=== PATIENT | female | born 1995 | race American Indian/Alaskan Native ===

== ENCOUNTER 2017-10-26 15:40 | Emergency (ER) | payer SELFPAY ==
[2017-10-26 15:51] VITALS: BP 119/62
[2017-10-26] MEDS ORDERED: FUL-GLO OP ONE ×2 (17:46→18:13)
[2017-10-26] MEDS ORDERED: TETRACAINE 0.5% OU PRN (17:46)
[2017-10-26] MEDS ORDERED: BSS ONE (18:13)
[2017-10-26] MEDS ORDERED: TETRACAINE 0.5% ONE (18:13)
--- NOTE | 2017-10-26 18:43 | Emergency Department Report ---
[facility] Chief Complaint: Eye Problems Stated Complaint: PINK EYE Time Seen by Provider: 10/26/17 17:39 Duration: 1 Day Side: Left Severity: mild Symptoms: Yes Eye Itching, Yes Eye Redness, No Eye Pain, No Mucous Drainage, No Purulent Drainage, No Blurred Vision, No Preceding URI, No H/O Allergic Rhinitis , No Contact Lens Use, No Trauma, No Fever, No Headache Other History: This is a 22-year-old female nontoxic, well nourished in appearance, no acute signs of distress presents to the ED with c/o of left eye crusting, itching, and redness x1 day. Patient stated yesterday she wake up with these symptoms. Patient denies any trauma. Denies any foreign body senstation. Denies any visual changes, blurry vision, headache, stiff neck, nausea, vomiting, eye pain, fever, chills, chest pain, shortness of breath, abdominal pain, numbness or tingling. Patient denies any allergies or past medical history. ED Review of Systems ROS: Stated complaint: PINK EYE Other details as noted in HPI Constitutional: denies: chills, fever Eyes: eye discharge. denies: eye pain, vision change ENT: denies: ear pain, throat pain Respiratory: denies: cough, shortness of breath, wheezing Cardiovascular: denies: chest pain, palpitations Endocrine: no symptoms reported Gastrointestinal: denies: abdominal pain, nausea, diarrhea Genitourinary: denies: urgency, dysuria, discharge Musculoskeletal: denies: back pain, joint swelling, arthralgia Skin: denies: rash, lesions Neurological: denies: headache, weakness, paresthesias Psychiatric: denies: anxiety, depression Hematological/Lymphatic: denies: easy bleeding, easy bruising ED Past Medical Hx - Past Medical History Previous Medical History?: No - Surgical History Past Surgical History?: No - Social History Smoking Status: Never Smoker Substance Use Type: Alcohol - Medications Home Medications: Home Medications Medication Instructions Recorded Confirmed Last Taken Type Ciprofloxacin 0.3% (Nf) 2 drops OD Q6H 7 Days drops 10/26/17 Unknown Rx [Ciprofloxacin OPTH] [facility] Exam - Exam General: Vital signs noted. No distress. Alert and acting appropriately. Eye Exam: Neither Injection, Neither Chemosis, Neither Abnormal Pupil, Neither EOMI, Neither Eye Foreign Body, Neither Lid Foreign Body, Neither Mucous Discharge, Neither Purulent Discharge, Neither Fluorescein Uptake, Neither Fluorescein Uptake (slit lamp), Neither Cell/Flare (slit lamp), Neither Corneal Edema, Neither Photophobia HEENT: No Nasal Congestion, No Pharyngeal Erythema Remainder of HEENT: Normal Lungs: Yes Clear Lung Sounds, Yes Good Air Exchange, No Wheezes, No Stridor, No Cough, No Nasal Flaring, No Retractions, No Use of Accessory Muscles Exam: Under Turcios lamp, I used fluorescein and tetracaine to examine cornea for corneal abrasion or foreign body, negative for coronary abrasion or foreign body noted upon exam. Tonopen is 12 for left eye. Visual acuity left: 20/30 Right: 20/50 ED Course Vital Signs 10/26/17 15:48 Temperature 98.3 F Pulse Rate 66 Respiratory 16 Rate Blood Pressure 119/62 O2 Sat by Pulse 98 Oximetry - Reevaluation(s) Reevaluation #1: 10/26/17 18:42 Patient is speaking in full sentences with no signs of distress noted. ED Medical Decision Making - Medical Decision Making This is a 22-year-old female that presents with conjunctivitis. Patient is stable and was examined by me. Normal visual acuity. Maxime-Pen within normal limits. Upon Turcios lamp there is no foreign body or corneal abrasion noted. Patient is discharged with ciprofloxacin opth. Patient was instructed to Follow -up with a primary care doctor/Pay Clerk in 3-5 days or if symptoms worsen and continue return to emergency room as soon as possible. At time time of discharge, the patient does not seem toxic or ill in appearance. No acute signs of distress noted. Patient agrees to discharge treatment plan of care. No further questions noted by the patient. Critical care attestation.: If time is entered above; I have spent that time in minutes in the direct care of this critically ill patient, excluding procedure time. ED Disposition Clinical Impression: Conjunctivitis, left eye Qualifiers: Conjunctivitis type: unspecified Qualified Code(s): H10.9 - Unspecified conjunctivitis Disposition: - TO HOME OR SELFCARE Is pt being admited?: No Does the pt Need Aspirin: No Condition: Stable Instructions: Ciprofloxacin (Into the eye), Conjunctivitis (ED) Additional Instructions: Follow-up with a primary care doctor/Pay Clerk in 3-5 days or if symptoms worsen and continue return to emergency room as soon as possible. Prescriptions: Ciprofloxacin 0.3% (Nf) [Ciprofloxacin OPTH] 2 drops OD Q6H 7 Days drops Referrals: VY VALENZUELA MD [Primary Care Provider] - 3-5 Days SOTERO POPE MD [Staff Physician] - 3-5 Days [facility] [Outside] - 3-5 Days [facility] [Outside] - 3-5 Days Forms: Work/School Release Form(ED)
== END 2017-10-26 19:01 | disposition home or self-care (01) ==
LOC: ED 15:40
DX: H10.9 Unspecified conjunctivitis (principal)
CPT/HCPCS: 99283